=== PATIENT | female | born 1940 | race Caucasian/White ===

== ENCOUNTER → 2021-06-11 | Outpatient (CLI) | payer OTHER ==
[~2021-06-11] MED LIST: Advil200 M1 PO; CALCA500CH PO; Cyclobenzaprine5 MG PO; LISHYD2025 PO; MEGA RED PO; MULTIVITAMIN PO; Naprosyn375 MG PO; ZESTORETIC 20-121 EA
== END | disposition home or self-care (01) ==
LOC: LAB SHORT 15:09 → LAB 15:09
DX: D48.5 Neoplasm of uncertain behavior of skin (principal)
CPT/HCPCS: 88305